=== PATIENT | female | born 1985 | race Hispanic/Latino ===

== ENCOUNTER 2018-03-25 09:06 | Observation (INO) | payer OTHER ==
[2018-03-25] MEDS ORDERED: Sodium Chloride 0.9% 1,000 ML IV ONE (10:03)
[2018-03-25] MEDS ORDERED: Iohexol 240 (50 ml) PO ONE (10:05)
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
[2018-03-25] MEDS ORDERED: Iohexol 240 (50 ml) ONE (10:12)
[2018-03-25] MEDS ORDERED: Sodium Chloride 0.9% 1,000 ML ONE (10:12)
[2018-03-25 10:22] LABS: BASO # 0.1 K/uL (0.0-0.2); BASO % 0.8 % (0.0-2.0); EOS # 0.4 K/uL (0.0-0.7); EOS % 3.1 % (0.0-4.0); HEMOGLOBIN 12.4 g/dL (11.0-16.0); LYMPH % 16.8 % (20.0-40.0); MEAN CELL VOLUME 75.7 fL (81.0-99.0); MEAN CORPUSCULAR HEMOGLOBIN 25.3 pg (27.0-31.0); MEAN CORPUSCULAR HGB CONC 33.4 g/dL (33.0-37.0); MEAN PLATELET VOLUME 8.1 fL (7.2-11.7); MONO # 0.8 K/uL (0.0-0.8); MONO % 6.6 % (0.0-10.0); NEUT # 8.7 K/uL (1.8-7.0); NEUT % 72.7 % (50.0-75.0); RBC 4.89 Mil/uL (3.80-5.20); RED CELL DISTRIBUTION WIDTH 14.4 % (11.5-14.5)
[2018-03-25 10:34] LABS: ALB/GLOB RATIO 1.3 (1.0-2.1); ALBUMIN 4.2 g/dL (3.5-5.0); ALT/SGPT 29 U/L (9-52); AST/SGOT 19 U/L (14-36); BLOOD UREA NITROGEN 17 mg/dL (7-17); CALCIUM 10.1 mg/dl (8.6-10.4); GFR NON-AFRICAN AMERICAN > 60; LIPASE 67 U/L (23-300)
[2018-03-25 10:52] LABS: SQUAMOUS EPITHIAL 1 /hpf (0-5); URINE BILIRUBIN NEGATIVE (NEGATIVE); URINE BLOOD NEGATIVE (NEGATIVE); URINE CLARITY Clear (Clear); URINE COLOR Yellow (YELLOW); URINE GLUCOSE (UA) NORMAL (Normal); URINE LEUKOCYTE ESTERASE NEG Leu/uL (Negative); URINE PROTEIN NEGATIVE (NEGATIVE); URINE UROBILINOGEN NORMAL mg/dL (0.2-1.0)
[2018-03-25 10:59] LABS: HCG,QUALITATIVE URINE NEGATIVE (NEGATIVE)
[2018-03-25] MEDS ORDERED: Iodixanol 320 MG/ML 100 ML BOTTLE IV ONE (13:10)
--- NOTE | 2018-03-25 14:41 | CT ---
Date of service: 03/25/2018 PROCEDURE: CT Cervical Spine without contrast HISTORY: dec sensation left arm, hx cervical bulging discs COMPARISON: None available. TECHNIQUE: Axial computed tomography images were obtained of the cervical spine without the use of intravenous contrast. Coronal and sagittal reformatted images were created and reviewed. Radiation dose: Total exam DLP = 480.28 mGy-cm. This CT exam was performed using one or more of the following dose reduction techniques: Automated exposure control, adjustment of the mA and/or kV according to patient size, and/or use of iterative reconstruction technique. FINDINGS: VERTEBRAE: There is normal alignment of the cervical vertebral bodies. There is straightening of the cervical spine with loss of normal cervical lordosis. Vertebral height is normal. Bone mineralization is normal. There is no acute fracture or traumatic anterior listhesis. The craniocervical junction is normal. The atlantoaxial joint normal. DISCS/SPINAL CANAL/NEURAL FORAMINA: Please note evaluation of the discs and spinal cord is limited on noncontrast CT examination. Allowing for this: C2-3: No large disc herniation, neural foraminal or spinal canal stenosis. C3-4: Disc osteophyte complex with asymmetric right uncovertebral joint hypertrophy result in mild right neural foraminal narrowing. No spinal canal stenosis. C4-5: Disc osteophyte complex and mild neural foraminal narrowing. No spinal canal stenosis. C5-6: Broad-based disc osteophyte complex with asymmetric left uncovertebral joint hypertrophy result moderate left neural foraminal narrowing and mild right neural foraminal narrowing. Also noted is mild spinal canal stenosis. C6-7: Disc osteophyte complex with asymmetric left uncovertebral joint hypertrophy result in moderate left neural foraminal narrowing. No central spinal canal stenosis. PARASPINAL SOFT TISSUES: Unremarkable. OTHER FINDINGS: None. IMPRESSION: 1. Mild multilevel degenerative disc disease, worse at C5-6 with a broad-based disc osteophyte complex, mild spinal canal stenosis and moderate left neural foraminal narrowing. If clinically indicated, MRI of the cervical spine on a non emergent basis may be performed for definitive evaluation. 2. Straightening of the cervical spine may be positional or related to muscle spasm.
--- NOTE | 2018-03-25 15:00 | CT ---
Date of service: 03/25/2018 PROCEDURE: CT Abdomen and Pelvis with contrast HISTORY: epigastric and lower ab pain COMPARISON: None. TECHNIQUE: CT scan of the abdomen and pelvis was performed after without administration of intravenous contrast. Oral contrast was not administered. Coronal and sagittal reformatted images were obtained. Contrast dose: 100 mL Visipaque Radiation dose: Total exam DLP = 1071.84 mGy-cm. This CT exam was performed using one or more of the following dose reduction techniques: Automated exposure control, adjustment of the mA and/or kV according to patient size, and/or use of iterative reconstruction technique. FINDINGS: LOWER THORAX: There is a 5 mm subpleural nodule in the right lateral lower lobe. The visualized lung bases are clear. LIVER: Mild hepatomegaly and fatty liver. No gross lesion or ductal dilatation. GALLBLADDER AND BILE DUCTS: The gallbladder is surgically absent. There is a 2.7 x 1.3 cm multilobular cystic lesion in the tail of the pancreas PANCREAS: Normal in size. No gross lesion or ductal dilatation. SPLEEN: Normal in size and appearance. ADRENALS: No discrete nodule. KIDNEYS AND URETERS: Normal in size with homogeneous enhancement. No hydronephrosis. No solid mass. VASCULATURE: No aortic aneurysm. BOWEL: The small bowel loops are normal in caliber. There is apparent mild diffuse circumferential mural thickening in the colon. No bowel dilatation or obstruction APPENDIX: Normal appendix. PERITONEUM: No free fluid. No free air. LYMPH NODES: No enlarged lymph nodes. BLADDER: Grossly normal in appearance. REPRODUCTIVE: The uterus is normal in size. An intrauterine device remains in customary position. No adnexal masses. BONES: No acute fracture. OTHER FINDINGS: None. IMPRESSION: 1. Apparent diffuse circumferential mural thickening in the colon may represent nonspecific acute infectious/ inflammatory colitis in the appropriate clinical setting. No bowel obstruction. 2. Mild hepatomegaly and fatty liver. 3. 2.7 x 1.3 cm exophytic multilobular cystic lesion anterior superior to the tail of the pancreas. The differential considerations include pancreatic cyst and cystic neoplasms. Dedicated MRI on a nonemergent basis with pancreas protocol is recommended for further characterization. 4. 5 mm nodule in the right lateral lung base. A dedicated CT scan of the thorax without intravenous contrast in 12 month interval is recommended in high-risk patient to assess stability.
[2018-03-25] MEDS ORDERED: metroNIDAZOLE IV 500 mg/100 ml 500 MG/100 ML BAG IVPB STA (15:28)
[2018-03-25] MEDS ORDERED: Ciprofloxacin 400mg/200ml D5W 400 MG/200 ML BAG IVPB STA (15:28)
[2018-03-25] MEDS ORDERED: metroNIDAZOLE IV 500 mg/100 ml 500 MG/100 ML BAG ONE (15:48)
[2018-03-25] MEDS ORDERED: Ciprofloxacin 400mg/200ml D5W 400 MG/200 ML BAG IVPB ONE (17:32)
[2018-03-25 20:13] VITALS: RESP 20
[2018-03-25] MEDS: Dextrose 5%/0.45% NS 1,000 ML IV SCH (20:18)
[2018-03-25] MEDS ORDERED: Potassium Chloride 20 mEq ER Tab PO STA (23:28)
[2018-03-26] MEDS: metroNIDAZOLE IV 500 mg/100 ml 500 MG/100 ML BAG IVPB SCH ×3 (01:25→18:07)
[2018-03-26] MEDS: Ciprofloxacin 400mg/200ml D5W 400 MG/200 ML BAG IVPB SCH ×2 (04:30→18:06)
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
[2018-03-26] MEDS ORDERED: Pneumococcal 23-Valent Vaccine IM ONE (10:00)
--- NOTE | 2018-03-26 10:08 | CP.PCM.CON ---
<Aminata Pineda - Last Filed: 03/26/18 10:09> History of Present Illness - History of Present Illness History of Present Illness: Gastroenterology Fellow/PGY6 Consult Note 33 year old female with PMH of Anxiety, Depression, HTN, and Acid reflux presenting with vomiting and diarrhea. Patient notes eating lentil soup with funny tast last Thursday from outside restaurant. Subsequent development of daily vomiting 1-2 times per day and 3-4 loose soft stool daily. Progression of symptoms to three bilious vomitus episodes and 3-4 watery diarrheal episodes yesterday. Associated mid abdominal pain, chills, and loss of appetite. Denies nausea, hematemesis, constipation, melena, hematochezia, or unintentional weight loss. No prior EGD or colonoscopy. Family History- denies stomach cancer, colon cancer, pancreatic cancer or pancreatic disease Social History- social alcohol and tobacco use, denies illicit drug use Surgical History- cholecystectomy, left shoulder Review of Systems - Review of Systems Review of Systems: 12-point review of systems negative except for as above Past Patient History - Past Social History Smoking Status: Light Smoker < 10 Cigarettes Daily - CARDIAC Hx Hypertension: Yes - PULMONARY Hx Asthma: Yes - ENDOCRINE/METABOLIC Hx Diabetes Mellitus Type 2: Yes - PSYCHIATRIC Hx Anxiety: Yes Hx Depression: Yes Hx Substance Use: No - SURGICAL HISTORY Hx Cholecystectomy: Yes - ANESTHESIA Hx Anesthesia: Yes Hx Anesthesia Reactions: No Hx Malignant Hyperthermia: No Meds Allergies/Adverse Reactions: Allergies Allergy/AdvReac Type Severity Reaction Status Date / Time No Known Allergies Allergy Verified 03/25/18 09:15 - Medications Medications: Current Medications Acetaminophen (Tylenol 325mg Tab) 650 mg PO Q8 PRN PRN Reason: Pain, moderate (4-7) Last Admin: 03/25/18 22:38 Dose: 650 mg Ciprofloxacin (Cipro 400mg/200ml Dsw) 400 mg in 200 mls @ 133 mls/hr IVPB Q12H TAURUS PRN Reason: Protocol Stop: 03/30/18 05:31 Last Admin: 03/26/18 04:30 Dose: 133 mls/hr Metronidazole (Flagyl) 500 mg in 100 mls @ 100 mls/hr IVPB Q8H TAURUS PRN Reason: Protocol Last Admin: 03/26/18 01:25 Dose: 100 mls/hr Dextrose/Sodium Chloride (Dextrose 5%/0.45% Ns 1000 Ml) 1,000 mls @ 60 drops/ hr IV .Q24H TAURUS Last Admin: 03/25/18 20:18 Dose: 60 drops/hr Ondansetron HCl (Zofran Inj) 4 mg IVP Q8 PRN PRN Reason: Nausea/Vomiting Last Admin: 03/25/18 20:18 Dose: 4 mg Physical Exam - Constitutional Appears: Non-toxic, No Acute Distress - Head Exam Head Exam: ATRAUMATIC, NORMOCEPHALIC - Eye Exam Eye Exam: EOMI, PERRL. absent: Scleral icterus Pupil Exam: PERRL. absent: Miosis, Mydriatic - ENT Exam ENT Exam: Mucous Membranes Moist, Normal Oropharynx - Neck Exam Neck exam: Positive for: Full Rom, Normal Inspection - Respiratory Exam Respiratory Exam: Clear to Auscultation Bilateral. absent: Rales, Rhonchi, Wheezes - Cardiovascular Exam Cardiovascular Exam: RRR, +S1, +S2. absent: Gallop, Rubs - GI/Abdominal Exam GI & Abdominal Exam: Normal Bowel Sounds, Soft, Tenderness. absent: Distended, Firm, Guarding, Organomegaly, Rebound, Rigid Additional comments: mid-abdominal tenderness to palpation - Extremities Exam Extremities exam: Positive for: normal inspection. Negative for: pedal edema - Neurological Exam Neurological exam: Alert, Oriented x3 - Psychiatric Exam Psychiatric exam: Normal Affect, Normal Mood - Skin Skin Exam: Dry, Intact, Normal Color, Warm Results - Vital Signs Recent Vital Signs: Last Vital Signs Temp 98.6 F 03/26/18 08:00 Pulse 55 L 03/26/18 08:00 Resp 20 03/26/18 08:00 BP 95/64 L 03/26/18 08:00 Pulse Ox 98 03/26/18 08:00 - Labs Result Diagrams: 03/25/18 10:14 03/25/18 10:14 Labs: Laboratory Results - last 24 hr 03/25/18 03/25/18 03/25/18 10:14 10:14 10:35 WBC 12.0 H RBC 4.89 Hgb 12.4 Hct 37.0 MCV 75.7 L MCH 25.3 L MCHC 33.4 RDW 14.4 Plt Count 435 H D MPV 8.1 Neut % (Auto) 72.7 Lymph % (Auto) 16.8 L [place] % (Auto) 6.6 Eos % (Auto) 3.1 Baso % (Auto) 0.8 Neut # (Auto) 8.7 H Lymph # (Auto) 2.0 [place] # (Auto) 0.8 Eos # (Auto) 0.4 Baso # (Auto) 0.1 Sodium 141 Potassium 3.3 L Chloride 103 Carbon Dioxide 24 Anion Gap 18 BUN 17 Creatinine 0.9 Est GFR ( Amer) > 60 Est GFR (Non-Af Amer) > 60 POC Glucose (mg/dL) Random Glucose 114 H Calcium 10.1 Total Bilirubin 0.3 AST 19 ALT 29 Alkaline Phosphatase 88 Total Protein 7.4 Albumin 4.2 Globulin 3.2 Albumin/Globulin Ratio 1.3 Lipase 67 Urine Color Yellow Urine Clarity Clear Urine pH 5.0 Ur Specific Bypro 1.012 Urine Protein Negative Urine Glucose (UA) Normal Urine Ketones Negative Urine Blood Negative Urine Nitrate Negative Urine Bilirubin Negative Urine Urobilinogen Normal Ur Leukocyte Esterase Neg Urine WBC (Auto) 1 Urine RBC (Auto) < 1 Ur Squamous Epith Cells 1 Urine HCG, Qual Negative 03/26/18 07:04 WBC RBC Hgb Hct MCV MCH MCHC RDW Plt Count MPV Neut % (Auto) Lymph % (Auto) [place] % (Auto) Eos % (Auto) Baso % (Auto) Neut # (Auto) Lymph # (Auto) [place] # (Auto) Eos # (Auto) Baso # (Auto) Sodium Potassium Chloride Carbon Dioxide Anion Gap BUN Creatinine Est GFR ( Amer) Est GFR (Non-Af Amer) POC Glucose (mg/dL) 116 H Random Glucose Calcium Total Bilirubin AST ALT Alkaline Phosphatase Total Protein Albumin Globulin Albumin/Globulin Ratio Lipase Urine Color Urine Clarity Urine pH Ur Specific Bypro Urine Protein Urine Glucose (UA) Urine Ketones Urine Blood Urine Nitrate Urine Bilirubin Urine Urobilinogen Ur Leukocyte Esterase Urine WBC (Auto) Urine RBC (Auto) Ur Squamous Epith Cells Urine HCG, Qual Assessment & Plan - Assessment and Plan (Free Text) Assessment: 33 year old female with PMH of Anxiety, Depression, HTN, and Acid reflux presenting with vomiting and diarrhea. Active treatment of gastroenteritis with CT A/P PO/IV contrast concerning for pancolitis and incidental finding of a multilobular pancreatic tail cyst. No prior EGD or colonoscopy. Plan: -ordered Cdiff, stool culture O&P -advance to clear liquid diet as tolerated -supportive care: IVFs, antiemetics, pain control -CT pancreas protocol to further characterize pancreatic cyst DDx: serous cystadenoma, mucinous cystadenoma -will require outpatient follow up for further work up of pancreas cyst -will follow clinical course <Isaac Chapin - Last Filed: 03/26/18 10:38> Meds - Medications Medications: Current Medications Acetaminophen (Tylenol 325mg Tab) 650 mg PO Q8 PRN PRN Reason: Pain, moderate (4-7) Last Admin: 03/25/18 22:38 Dose: 650 mg Ciprofloxacin (Cipro 400mg/200ml Dsw) 400 mg in 200 mls @ 133 mls/hr IVPB Q12H TAURUS PRN Reason: Protocol Stop: 03/30/18 05:31 Last Admin: 03/26/18 04:30 Dose: 133 mls/hr Metronidazole (Flagyl) 500 mg in 100 mls @ 100 mls/hr IVPB Q8H TAURUS PRN Reason: Protocol Last Admin: 03/26/18 01:25 Dose: 100 mls/hr Dextrose/Sodium Chloride (Dextrose 5%/0.45% Ns 1000 Ml) 1,000 mls @ 60 drops/ hr IV .Q24H TAURUS Last Admin: 03/25/18 20:18 Dose: 60 drops/hr Ondansetron HCl (Zofran Inj) 4 mg IVP Q8 PRN PRN Reason: Nausea/Vomiting Last Admin: 03/25/18 20:18 Dose: 4 mg Results - Vital Signs Recent Vital Signs: Last Vital Signs Temp 98.6 F 03/26/18 08:00 Pulse 55 L 03/26/18 08:00 Resp 20 03/26/18 08:00 BP 95/64 L 03/26/18 08:00 Pulse Ox 98 03/26/18 08:00 - Labs Result Diagrams: 03/25/18 10:14 03/25/18 10:14 Labs: Laboratory Results - last 24 hr 03/25/18 03/25/18 03/26/18 10:14 10:35 07:04 Sodium 141 Potassium 3.3 L Chloride 103 Carbon Dioxide 24 Anion Gap 18 BUN 17 Creatinine 0.9 Est GFR ( Amer) > 60 Est GFR (Non-Af Amer) > 60 POC Glucose (mg/dL) 116 H Random Glucose 114 H Calcium 10.1 Total Bilirubin 0.3 AST 19 ALT 29 Alkaline Phosphatase 88 Total Protein 7.4 Albumin 4.2 Globulin 3.2 Albumin/Globulin Ratio 1.3 Lipase 67 Urine Color Yellow Urine Clarity Clear Urine pH 5.0 Ur Specific Bypro 1.012 Urine Protein Negative Urine Glucose (UA) Normal Urine Ketones Negative Urine Blood Negative Urine Nitrate Negative Urine Bilirubin Negative Urine Urobilinogen Normal Ur Leukocyte Esterase Neg Urine WBC (Auto) 1 Urine RBC (Auto) < 1 Ur Squamous Epith Cells 1 Urine HCG, Qual Negative Attending/Attestation - Attestation I have personally seen and examined this patient.: Yes I have fully participated in the care of the patient.: Yes I have reviewed all pertinent clinical information: Yes Notes (Text): 03/26/18 10:32 I have seen and examined patient with GI fellow. Agree with above documentation with the following additions. In brief, this is a 33 year old female with history of anxiety, HTN who presents to hospital with complaint of diarrhea and vomiting which began one week ago. Symptoms started following consumption of lentil soup from restaurant, prior to this she was in usual state of health. She describes having 3-4 loose bowel movements per day along with multiple episodes of non-bloody emesis. She denies similar prior episodes , sick contacts, recent antibiotic use, or recent travel. No prior endoscopic evaluation. Anxiety HTN Diarrhea, vomiting - CT imaging reviewed by me showing pancolitis and multilobular pancreatic tail cystic lesion measuring 2.4 x 1 cm - Liquid diet as tolerated - Continue with antibiotic therapy - Obtain stool studies - Suggest dedicated pancreatic protocol CT for further evaluation of cystic lesion - differential includes serous vs mucinous lesion vs IPMN vs pseudopapillary - Will continue to monitor patient clinical course
[2018-03-26 12:06] LABS: BLOOD UREA NITROGEN 8 mg/dL (7-17); CALCIUM 9.2 mg/dl (8.6-10.4); GFR NON-AFRICAN AMERICAN > 60
[2018-03-26 13:37] LABS: C DIFF TOXIN A B NEGATIVE (NEGATIVE)
[2018-03-26] MEDS ORDERED: [UNRECOGNIZED DRUG - OTHER] PO ONE (13:45)
[2018-03-26] MEDS ORDERED: Iodixanol 320 MG/ML 100 ML BOTTLE IV ONE ×2 (16:11→16:26)
[2018-03-26 17:44] LABS: FECAL LEUKOCYTES NEGATIVE (NEGATIVE)
[2018-03-26] MEDS ORDERED: Potassium Chloride 20 mEq ER Tab PO STA (19:04)
[2018-03-26] MEDS: Dextrose 5%/0.45% NS 1,000 ML IV SCH (21:43)
[2018-03-26] MEDS ORDERED: MethylPREDNISolone 40 mg Vial IVP STA (23:00)
[2018-03-27] MEDS: metroNIDAZOLE IV 500 mg/100 ml 500 MG/100 ML BAG IVPB SCH ×2 (01:10→09:55)
[2018-03-27] MEDS: Ciprofloxacin 400mg/200ml D5W 400 MG/200 ML BAG IVPB SCH (05:30)
--- NOTE | 2018-03-27 08:43 | CP.PCM.PN ---
Subjective - Date & Time of Evaluation Date of Evaluation: 03/27/18 Time of Evaluation: 08:39 - Subjective Subjective: I have seen and examined patient. No acute events overnight, she is seen resting in bed comfortably watching television. No bowel movements overnight, one loose episode this morning. Her abdominal pain has resolved and she denies nausea, vomiting, fever/chills. Tolerating PO liquids without difficulty. Review of vitals from today are normal. 12 point review of systems performed, negative aside from mentioned above. Objective - Vital Signs/Intake and Output Vital Signs (last 24 hours): Temp Pulse Resp BP Pulse Ox 98.2 F 58 L 20 116/78 99 03/27/18 00:00 03/27/18 00:00 03/27/18 00:00 03/27/18 00:00 03/27/18 00:00 Intake and Output: 03/27/18 03/27/18 06:59 18:59 Intake Total 900 Balance 900 - Medications Medications: Current Medications Acetaminophen (Tylenol 325mg Tab) 650 mg PO Q8 PRN PRN Reason: Pain, moderate (4-7) Last Admin: 03/25/18 22:38 Dose: 650 mg Ciprofloxacin (Cipro 400mg/200ml Dsw) 400 mg in 200 mls @ 133 mls/hr IVPB Q12H [facility] PRN Reason: Protocol Stop: 03/30/18 05:31 Last Admin: 03/27/18 05:30 Dose: 133 mls/hr Metronidazole (Flagyl) 500 mg in 100 mls @ 100 mls/hr IVPB Q8H [facility] PRN Reason: Protocol Last Admin: 03/27/18 01:10 Dose: 100 mls/hr Dextrose/Sodium Chloride (Dextrose 5%/0.45% Ns 1000 Ml) 1,000 mls @ 60 drops/ hr IV .Q24H [facility] Last Admin: 03/26/18 21:43 Dose: 60 drops/hr Ondansetron HCl (Zofran Inj) 4 mg IVP Q8 PRN PRN Reason: Nausea/Vomiting Last Admin: 03/25/18 20:18 Dose: 4 mg - Labs Labs: 03/25/18 10:14 03/26/18 11:25 - Constitutional Appears: Non-toxic, No Acute Distress - Head Exam Head Exam: NORMAL INSPECTION - Eye Exam Eye Exam: EOMI, Normal appearance - ENT Exam ENT Exam: Mucous Membranes Moist - Respiratory Exam Respiratory Exam: Clear to Ausculation Bilateral - Cardiovascular Exam Cardiovascular Exam: +S1, +S2 - GI/Abdominal Exam GI & Abdominal Exam: Soft, Normal Bowel Sounds Additional comments: non tender to palpation in four quadrants - Extremities Exam Extremities Exam: Normal Inspection - Skin Skin Exam: Dry, Intact, Normal Color, Warm Assessment and Plan - Assessment and Plan (Free Text) Assessment: Abdominal pain - resolved Diarrhea - colitis, likely infectious given clinical presentation Pancreatic lesion - CT reviewed by me showing multilobulated cystic lesion in tail of pancreas measuring nearly 2.5 x 1 cm, unknown etiology though internal debris noted Plan: - Advance diet as tolerated - Follow up stool studies, c-difficile negative - Continue with antibiotic therapy to complete 10 day course - Patient will require outpatient follow up of pancreatic lesion with EUS examination - No further planned intervention, from GI perspective if patient tolerating PO diet can be discharged home. Will sign off case, please reconsult as necessary , thank you.
[2018-03-27 13:42] LABS: HEMOGLOBIN 11.7 g/dL (11.0-16.0); MEAN CELL VOLUME 75.4 fL (81.0-99.0); MEAN CORPUSCULAR HEMOGLOBIN 25.3 pg (27.0-31.0); MEAN CORPUSCULAR HGB CONC 33.6 g/dL (33.0-37.0); MEAN PLATELET VOLUME 7.8 fL (7.2-11.7); RBC 4.6 Mil/uL (3.80-5.20); RED CELL DISTRIBUTION WIDTH 14.3 % (11.5-14.5); WHITE BLOOD COUNT 10.3 K/uL (4.8-10.8)
[2018-03-27 14:04] LABS: BLOOD UREA NITROGEN 7 mg/dL (7-17); CALCIUM 9.3 mg/dl (8.6-10.4); GFR NON-AFRICAN AMERICAN > 60
[2018-03-27 16:07] VITALS: BP 117/76; PULSE 76; TEMP 99; O2SAT 100
--- NOTE | 2018-03-27 16:08 | CP.PCM.PN ---
Subjective - Date & Time of Evaluation Date of Evaluation: 03/27/18 Time of Evaluation: 16:08 Objective - Vital Signs/Intake and Output Vital Signs (last 24 hours): Temp Pulse Resp BP Pulse Ox 99 F 76 20 117/76 100 03/27/18 16:00 03/27/18 16:00 03/27/18 16:00 03/27/18 16:00 03/27/18 16:00 Intake and Output: 03/27/18 03/27/18 06:59 18:59 Intake Total 900 400 Balance 900 400 - Medications Medications: Current Medications Acetaminophen (Tylenol 325mg Tab) 650 mg PO Q8 PRN PRN Reason: Pain, moderate (4-7) Last Admin: 03/27/18 13:44 Dose: 650 mg Ciprofloxacin (Cipro 400mg/200ml Dsw) 400 mg in 200 mls @ 133 mls/hr IVPB Q12H [facility] PRN Reason: Protocol Stop: 03/30/18 05:31 Last Admin: 03/27/18 05:30 Dose: 133 mls/hr Metronidazole (Flagyl) 500 mg in 100 mls @ 100 mls/hr IVPB Q8H [facility] PRN Reason: Protocol Last Admin: 03/27/18 09:55 Dose: 100 mls/hr Dextrose/Sodium Chloride (Dextrose 5%/0.45% Ns 1000 Ml) 1,000 mls @ 60 drops/ hr IV .Q24H [facility] Last Admin: 03/26/18 21:43 Dose: 60 drops/hr Ondansetron HCl (Zofran Inj) 4 mg IVP Q8 PRN PRN Reason: Nausea/Vomiting Last Admin: 03/25/18 20:18 Dose: 4 mg - Labs Labs: 03/27/18 13:37 03/27/18 13:37 Assessment and Plan - Assessment and Plan (Free Text) Assessment: FOLLOW UP WITH YOUR PRIMARY DOCTOR ---CALL FOR APPOINTMENT FOLLOW UP WITH DR SANCHEZ IN HIS OFFICE ---CALL FOR APPOINTMENT ADDRESS YOUR REPEAT PANCREATIC ENDOSCOPIC ULTRASOUND CONTINUE HOME MEDICATION NEW PRESCRIPTION GIVEN CIPRO 500 MG Q12H PO FOR [address] [facility] [address] CALL [address] RODRÍGUEZ OR GO TO THE EMERGENCY ROOM IF SYMPTOMS RETURN OR WORSENING
--- NOTE | 2018-03-28 12:08 | CT ---
Date of service: 03/26/2018 PROCEDURE: CT Abdomen and Pelvis with contrast HISTORY: Pancreatic cyst COMPARISON: In comparison made with prior CT scan of the brain dated 03/25/2018. In TECHNIQUE: Contiguous helical/transaxial sections of the abdomen pelvis performed in standard fashion employing pancreatic protocol following intravenous injection of approximately 100 cc Visipaque 320 Radiation dose: Total exam DLP = 22 90.12 mGy-cm. This CT exam was performed using one or more of the following dose reduction techniques: Automated exposure control, adjustment of the mA and/or kV according to patient size, and/or use of iterative reconstruction technique. FINDINGS: LOWER THORAX: Previously noted small 5 mm nodule right lung base is not appreciated on this exam due to differences in slice placement. Re- demonstrated is a small localized areas scarring in the left lingular region and a tiny approximately 5 mm semi lunar shaped pleural-based nodule left lateral sulcus. Follow-up CT scan in 6-12 months recommended. LIVER: Liver is enlarged measuring over 21 cm in CC dimension. Mild diffuse fatty hepatic infiltration felt be present. No obvious hepatic mass or collection. Portal and splenic veins are opacified. GALLBLADDER AND BILE DUCTS: Cholecystectomy. PANCREAS: Re- demonstrated is a small approximately 2.4 x 13.5 mm somewhat peanut shaped -lobulated cystic lesion in the region of the pancreatic tail. . This small focus exhibits a more discrete rounded cystic-appearing component and a more lateral slightly smaller elliptical shaped makes component which is saw the slightly more hyperdense It is unclear whether this lesion arises from the tail of the pancreas or is located adjacent to the pancreas. Rule out postinflammatory sequela of pancreatitis despite the lack of additional signs of chronic pancreatitis. The possibility of a cystic neoplasm not excluded. Clinical correlation recommended. Follow-up may be helpful for further evaluation of this lesion. SPLEEN: Spleen exhibits normal size. ADRENALS: There are no adrenal lesions seen. KIDNEYS AND URETERS: Precontrast imaging demonstrates increased attenuation within renal parenchyma likely related to prior intravenous contrast injection from 03/25/2018. In situ tampon. VASCULATURE: Unremarkable. No aortic aneurysm. BOWEL: The stomach is partially distended. Visualized loops of small bowel exhibit normal contour and caliber. No evidence of acute mechanical small bowel obstruction. Oral contrast material opacifies the colon to the level of the rectum. The the no definitive mural wall thickening. APPENDIX: Normal appendix PERITONEUM: Unremarkable. No free fluid. No free air. Note is made of a small rounded approximately 10.8 mm soft tissue density in the mesentery near the gallbladder fossa with a peripheral hyperdense rim and central area of lower attenuation. This focus does not exhibit significant contrast enhancement and may represent some old post operative sequela given its location not to the gallbladder fossa this patient's with status post cholecystectomy. LYMPH NODES: Unremarkable. No enlarged lymph nodes. BLADDER: The urinary bladder is incompletely distended which in part accounts for thick-walled appearance. The possibility of a cystitis not excluded. Correlation with urinalysis recommended. REPRODUCTIVE: In situ Copper-T IUD. In situ tampon. BONES: No acute fracture. OTHER FINDINGS: None. IMPRESSION: There is a small approximately 2.6 x 1.35 mm somewhat peanut shaped lobulated partially cystic lesion near the adjacent to/abutting the pancreatic tail. This lesion is of uncertain etiology and does not appear to exhibit a discernible significant contrast enhancement. Rule out the postinflammatory sequela from prior pancreatitis. Cystic neoplasm not excluded. Followup bulla MRI postcontrast MRI of the pancreas some may be of some benefit to further characterize this lesion. Note also made of a small rounded soft tissue density in the mesentery near the gallbladder fossa which also does not exhibit significant discernible contrast enhancement. This focus could represent some postoperative of scarring/granulation tissue given the findings of cholecystectomy. Followup interval recommended. Cholecystectomy. Hepatomegaly. Fatty hepatic infiltration. In situ IUD and in situ tampon. Previously noted small 5 mm nodule right lung base is not appreciated on this exam due to differences in slice placement. Re- demonstrated is a small localized areas scarring in the left lingular region and a tiny approximately 5 mm semi lunar shaped pleural-based nodule left lateral sulcus. Follow-up CT scan in 6-12 months recommended.
== END 2018-03-27 17:45 | disposition home or self-care (01) ==
LOC: C.ER 09:06 → C.9E 17:09 → C.3T 17:35 → UNDODISOB 03-27 16:06
PROVIDERS: ADMIT Internal Medicine Nephrology; ATTEND Internal Medicine Nephrology
DX: A09 Infectious gastroenteritis and colitis, unspecified (principal); I10 Essential (primary) hypertension; F41.9 Anxiety disorder, unspecified; E11.9 Type 2 diabetes mellitus without complications; J45.909 Unspecified asthma, uncomplicated; K21.9 Gastro-esophageal reflux disease without esophagitis; K86.2 Cyst of pancreas; F17.210 Nicotine dependence, cigarettes, uncomplicated
CPT/HCPCS: 36415; 72125; 74177; 80048; 80053; 81001; 82948; 83690; 84703; 85025; 85027; 87045; 87177; 87209; 87230; 89055; 96360; 96365; 96374; 99285; G0378; J0744; J2405; J2920; J7030; J7042; Q9966; Q9967

== ENCOUNTER 2018-04-06 07:27 | Day surgery (SDC) | payer OTHER ==
[2018-04-05 11:04] VITALS: BMI 38.7
[2018-04-06] MEDS ORDERED: Lactated Ringer's 500 ML IV ONE ×2 (09:33)
[2018-04-06] MEDS ORDERED: Pantoprazole 40 mg EC Tab PO STA (09:35)
--- NOTE | 2018-04-06 09:35 | CP.SDSHP ---
Same Day Surgery H & P - History Proposed Procedure: egd Pre-Op Diagnosis: dysphagia. epigastric pain - Previous Medical/Surgical History Cardiac: Hypertension, Other (hyperlipidemia, ) Endocrine/Metabolic: Diabetes, Obesity Previous Surgical History: Lap Cholecystectomy. x 1. Knee surgery. Shoulder surgery x 3 - Allergies Allergies: Allergies No Known Allergies Allergy (Verified 04/06/18 07:45) - Physical Exam Vital Signs: Vital Signs 04/06/18 07:46 Temperature 97.4 F L Pulse Rate 74 Respiratory 19 Rate Blood Pressure 126/79 O2 Sat by Pulse 100 Oximetry Mental Status: Alert & Oriented x3 Neuro: WNL Heart: WNL Lungs: WNL GI: WNL Social History: Smoking (occasional cigarette), Alcohol (social), Drug Use ( Marijuana rarely) - Impression Impression: dysphagia. epigastric pain Pt. Evaluated Today:Candidate for Anesthesia & Procedure: Yes - Date & Time Date: 04/06/18 Time: 09:35 Short Stay Discharge - Short Stay Discharge Admitting Diagnosis/Reason for Visit: CYST OF PANCREAS / DYSPHAGIA / EPIGASTRIC PAIN Disposition: HOME/ ROUTINE
[2018-04-06] MEDS ORDERED: Lidocaine Hydrochloride 5 ML INJ ONE (09:37)
[2018-04-06] MEDS ORDERED: Propofol 10 mg/ml Inj (20 ML) ONE (09:37)
[2018-04-06] MEDS ORDERED: Pantoprazole 40 mg EC Tab PO ONE (10:45)
[2018-04-06 11:53] VITALS: TEMP 97.2
[2018-04-06 11:55] VITALS: RESP 20; O2SAT 100
[2018-04-06 12:00] VITALS: BP 128/86; PULSE 72
== END 2018-04-06 11:55 | disposition home or self-care (01) ==
LOC: C.ENDO 07:27
PROVIDERS: ATTEND Internal Medicine Gastroenterology
DX: K29.70 Gastritis, unspecified, without bleeding (principal); K86.2 Cyst of pancreas; F17.210 Nicotine dependence, cigarettes, uncomplicated; K44.9 Diaphragmatic hernia without obstruction or gangrene; K21.0 Gastro-esophageal reflux disease with esophagitis; E11.43 Type 2 diabetes mellitus with diabetic autonomic (poly)neuropathy; K31.84 Gastroparesis; Z79.4 Long term (current) use of insulin
CPT/HCPCS: 43239; 82948; 84703; 88305; 88312; 88342; J2704; J7120

== ENCOUNTER 2018-11-05 09:06 | Outpatient (CLI) | payer OTHER | END 2018-11-05 09:07 | disposition home or self-care (01) | LOC: C.CTH 09:06 | DX: K86.2 Cyst of pancreas (principal) ==

== ENCOUNTER 2018-11-13 17:19 | Emergency (ER) | payer OTHER ==
[2018-11-13 17:19] VITALS: BMI 38.7
[2018-11-13] MEDS ORDERED: Sodium Chloride 0.9% 1,000 ML IV ONE ×2 (17:41→18:17)
[2018-11-13] MEDS ORDERED: Sodium Chloride 0.9% 1,000 ML ONE (18:10)
[2018-11-13 18:29] LABS: BASO # 0.1 K/uL (0.0-0.2); BASO % 0.7 % (0.0-2.0); HEMOGLOBIN 12.8 g/dL (11.0-16.0); LYMPH # 1.3 K/uL (1.0-4.3); LYMPH % 8.2 % (20.0-40.0); MEAN CELL VOLUME 80.5 fL (81.0-99.0); MEAN CORPUSCULAR HEMOGLOBIN 26.3 pg (27.0-31.0); MEAN CORPUSCULAR HGB CONC 32.7 g/dL (33.0-37.0); MEAN PLATELET VOLUME 7.3 fL (7.2-11.7); MONO # 0.4 K/uL (0.0-0.8); MONO % 2.3 % (0.0-10.0); NEUT # 13.9 K/uL (1.8-7.0); NEUT % 88.8 % (50.0-75.0); PLATELET COUNT 458 K/uL (130-400); RBC 4.86 Mil/uL (3.80-5.20); RED CELL DISTRIBUTION WIDTH 13.6 % (11.5-14.5); WHITE BLOOD COUNT 15.7 K/uL (4.8-10.8)
[2018-11-13 18:45] LABS: ALB/GLOB RATIO 1.4 (1.0-2.1); ALBUMIN 4.7 g/dL (3.5-5.0); ALT/SGPT 15 U/L (9-52); AST/SGOT 17 U/L (14-36); BLOOD UREA NITROGEN 8 mg/dL (7-17); CALCIUM 9.2 mg/dl (8.6-10.4); GFR NON-AFRICAN AMERICAN > 60; LIPASE 59 U/L (23-300)
[2018-11-13 18:54] LABS: LYMPHOCYTE 6 % (20-40); MONOCYTE 3 % (0-10); NEUTROPHIL 91 % (50-75); TOTAL CELLS COUNTED 100
[2018-11-13 18:55] LABS: ANISOCYTOSIS SLIGHT; PLATELET ESTIMATE SLIGHTLY INCREASED (NORMAL); POLYCHROMIC SLIGHT
[2018-11-13 18:56] LABS: HYPOCHROMIC SLIGHT
[2018-11-13 19:24] LABS: SQUAMOUS EPITHIAL < 1 /hpf (0-5); URINE BACTERIA OCC (<OCC); URINE BILIRUBIN NEGATIVE (NEGATIVE); URINE BLOOD NEGATIVE (NEGATIVE); URINE CLARITY Clear (Clear); URINE COLOR Straw (YELLOW); URINE GLUCOSE (UA) NORMAL (Normal); URINE LEUKOCYTE ESTERASE NEG Leu/uL (Negative); URINE PROTEIN NEGATIVE (NEGATIVE); URINE UROBILINOGEN NORMAL mg/dL (0.2-1.0)
--- NOTE | 2018-11-13 20:14 | C.PDOC ---
History Of Present Illness 33 year old female presents to the ED c/o intermittent vomiting associated with nausea for the past 3 days. Patient reports vomit is non bloody non bilious. Patient reports having a history of gastritis. Patient denies fever, chills, rash, hematuria, blood in stool, CP, SOB, palpitations, sick contacts. Chief Complaint (Nursing): Abdominal Pain History Per: Patient History/Exam Limitations: no limitations Onset/Duration Of Symptoms: Days (3) Current Symptoms Are (Timing): Still Present Location Of Pain/Discomfort: Diffuse Quality Of Discomfort: "Pain" Associated Symptoms: Nausea, Vomiting. denies: Diarrhea, Urinary Symptoms Recent travel outside of the [place]: No Additional History Per: Patient Abnormal Vaginal Bleeding: No Past Medical History Reviewed: Historical Data, Nursing Documentation, Vital Signs Vital Signs: Last Vital Signs Temp 98.4 F 11/13/18 17:23 Pulse 95 H 11/13/18 17:23 Resp 18 11/13/18 17:23 BP 102/72 11/13/18 17:23 Pulse Ox 98 11/13/18 17:23 - Medical History PMH: Anemia (IRON DEFICIENCY), Anxiety, Asthma, Depression, Gastritis, HTN, Hypercholesterolemia (NOT ON MEDS) Denies: Chronic Kidney Disease Surgical History: Cholecystectomy Family History: States: Unknown Family Hx - Social History Hx Tobacco Use: No Hx Alcohol Use: No Hx Substance Use: No - Immunization History Hx Tetanus Toxoid Vaccination: No Hx Influenza Vaccination: No Hx Pneumococcal Vaccination: No Review Of Systems Constitutional: Negative for: Fever, Chills Cardiovascular: Negative for: Chest Pain Respiratory: Negative for: Shortness of Breath Gastrointestinal: Positive for: Nausea, Vomiting. Negative for: Diarrhea Musculoskeletal: Negative for: Back Pain Skin: Negative for: Rash Neurological: Negative for: Weakness, Numbness Physical Exam - Physical Exam Appears: Non-toxic, No Acute Distress Skin: Normal Color, Warm, Dry Head: Atraumatic, Normacephalic Eye(s): bilateral: Normal Inspection Oral Mucosa: Moist Neck: Normal ROM, Supple Chest: Symmetrical Cardiovascular: Rhythm Regular Respiratory: Normal Breath Sounds, No Rales, No Rhonchi, No Wheezing Gastrointestinal/Abdominal: Soft, No Tenderness, No Guarding, No Rebound Back: No CVA Tenderness Extremity: Normal ROM, No Tenderness, No Swelling Neurological/Psych: Oriented x3, Normal Speech, Normal Cognition Gait: Steady ED Course And Treatment - Laboratory Results Result Diagrams: 11/13/18 18:26 11/13/18 18:26 Lab Results: Total Bilirubin 0.3 mg/dL (0.2-1.3) 11/13/18 18:26 AST 17 U/L (14-36) 11/13/18 18:26 ALT 15 U/L (9-52) 11/13/18 18:26 Alkaline Phosphatase 87 U/L (38-126) 11/13/18 18:26 Total Protein 7.9 g/dL (6.3-8.3) 11/13/18 18:26 Albumin 4.7 g/dL (3.5-5.0) 11/13/18 18:26 Globulin 3.2 gm/dL (2.2-3.9) 11/13/18 18:26 Albumin/Globulin Ratio 1.4 (1.0-2.1) 11/13/18 18:26 Lipase 59 U/L (23-300) 11/13/18 18:26 Urine Color Straw (YELLOW) 11/13/18 19:17 Urine Clarity Clear (Clear) 11/13/18 19:17 Urine pH 6.0 (5.0-8.0) 11/13/18 19:17 Ur Specific [place] 1.003 (1.003-1.030) 11/13/18 19:17 Urine Protein Negative mg/dL (NEGATIVE) 11/13/18 19:17 Urine Glucose (UA) Normal mg/dL (Normal) 11/13/18 19:17 Urine Ketones Negative mg/dL (NEGATIVE) 11/13/18 19:17 Urine Blood Negative (NEGATIVE) 11/13/18 19:17 Urine Nitrate Negative (NEGATIVE) 11/13/18 19:17 Urine Bilirubin Negative (NEGATIVE) 11/13/18 19:17 Urine Urobilinogen Normal mg/dL (0.2-1.0) 11/13/18 19:17 Ur Leukocyte Esterase Neg Alix/uL (Negative) 11/13/18 19:17 Urine WBC (Auto) < 1 /hpf (0-5) 11/13/18 19:17 Ur Squamous Epith Cells < 1 /hpf (0-5) 11/13/18 19:17 Urine Bacteria Occ (<OCC) H 04/27/19 19:17 O2 Sat by Pulse Oximetry: 98 (ON RA) Pulse Ox Interpretation: Normal Medical Decision Making Medical Decision Making: Plan: * Labs * Pepcid 20 mg IVP * IV fluids * Zofran 8 mg IVP * Urine culture * UA Patient reports improvement after medications were given, no longer vomiting. Patient tolerated PO in the ED advised to follow up with PMD. Disposition - Disposition Referrals: [facility], [Non-Staff] - Disposition: HOME/ ROUTINE Disposition Time: 19:30 Condition: IMPROVED Additional Instructions: ELPIDIO LOPEZ, thank you for letting us take care of you today. The emergency medical care you received today was directed at your acute symptoms. If you were prescribed any medication, please fill it and take as directed. It may take several days for your symptoms to resolve. Return to the Emergency Department if your symptoms worsen, do not improve, or if you have any other problems. Please contact your doctor or call one of the physicians/clinics you have been referred to that are listed on the Patient Visit Information form that is included in your discharge packet. Bring any paperwork you were given at discharge with you along with any medications you are taking to your follow up visit. Our treatment cannot replace ongoing medical care by a primary care provider outside of the emergency department. Thank you for allowing the [facility] team to be part of your care today. Follow up with your primary care doctor in 2-3 days for re-evaluation and further management. Prescriptions: Famotidine [Pepcid] 20 mg PO BID #20 tab Ondansetron ODT [Zofran ODT] 8 mg PO Q8 PRN #15 odt PRN Reason: Nausea/Vomiting Instructions: Gastritis (DC) Forms: [email or web address] (Czech) - Clinical Impression Clinical Impression: Gastroesophageal reflux disease - Scribe Statement The provider has reviewed the documentation as recorded by the Scribe Michael Arora All medical record entries made by the Scribe were at my direction and personally dictated by me. I have reviewed the chart and agree that the record accurately reflects my personal performance of the history, physical exam, medical decision making, and the department course for this patient. I have also personally directed, reviewed, and agree with the discharge instructions and disposition.
[2018-11-13 20:34] VITALS: BP 118/78; PULSE 80; RESP 14; TEMP 98
[2018-11-13 21:51] VITALS: O2SAT 98
== END 2018-11-13 20:34 | disposition home or self-care (01) ==
LOC: C.ER 17:19
DX: K21.9 Gastro-esophageal reflux disease without esophagitis (principal); E78.00 Pure hypercholesterolemia, unspecified; I10 Essential (primary) hypertension
CPT/HCPCS: 80053; 81001; 83690; 85025; 87086; 96361; 96374; 96375; 99284; J2405; J7030